=== PATIENT | male | born 1965 | race Caucasian/White ===

== ENCOUNTER → 2016-06-06 | Outpatient (CLI) | payer OTHER | LOC: KOH-I 06-05 15:00 | DX: N50.89 Other specified disorders of the male genital organs (principal) | CPT/HCPCS: 76870 ==

== ENCOUNTER → 2016-08-07 | Outpatient (CLI) | payer OTHER | LOC: KOH-I 08-04 08:30 | DX: M84.375A Stress fracture, left foot, initial encounter for fracture (principal) | CPT/HCPCS: 73720; A9577 ==

== ENCOUNTER → 2020-04-30 | Outpatient (CLI) | payer OTHER | LOC: RAD 15:45 | DX: M25.551 Pain in right hip (principal); M25.552 Pain in left hip; M25.572 Pain in left ankle and joints of left foot; M79.672 Pain in left foot | CPT/HCPCS: 73522; 73610; 73630 ==

== ENCOUNTER → 2020-06-15 | Outpatient (CLI) | payer OTHER ==
[2020-06-15 13:28] LABS: HEMOGLOBIN 15.1 gm/dl (14.0-17.5); WHITE BLOOD COUNT 5.5 K/UL (4.5-11.0)
[2020-06-15 13:54] LABS: BUN/CREATININE RATIO 16 (0-10)
[2020-06-16 08:14] LABS: VITAMIN D, 25-HYDROXY 19.1 ng/mL (30.0-100.0)
[2020-06-16 11:14] LABS: RHEUMATOID ARTHRITIS FACTOR <10.0 IU/mL (0.0-13.9)
[2020-06-17 01:07] LABS: CCP ANTIBODIES IGG/IGA 4 units (0-19)
== END ==
LOC: LAB 11:42
PROVIDERS: Nurse Practitioner Family
DX: Z87.898 Personal history of other specified conditions (principal); D89.9 Disorder involving the immune mechanism, unspecified; M25.50 Pain in unspecified joint; R76.8 Other specified abnormal immunological findings in serum
CPT/HCPCS: 36415; 80053; 82550; 83520; 84439; 84443; 84550; 85025; 85652; 86140; 86200; 86431

== ENCOUNTER → 2020-12-03 | Outpatient (CLI) | payer OTHER | LOC: KOH-I 11-30 14:30 | DX: M54.18 Radiculopathy, sacral and sacrococcygeal region (principal); M47.816 Spondylosis without myelopathy or radiculopathy, lumbar region; M47.817 Spondylosis without myelopathy or radiculopathy, lumbosacral region; M51.26 Other intervertebral disc displacement, lumbar region; M48.061 Spinal stenosis, lumbar region without neurogenic claudication; M51.86 Other intervertebral disc disorders, lumbar region | CPT/HCPCS: 72148 ==

== ENCOUNTER → 2021-06-22 | Outpatient (CLI) | payer OTHER | LOC: HEART 5 06-13 14:30 | DX: M79.606 Pain in leg, unspecified (principal) ==

== ENCOUNTER → 2021-09-28 | Outpatient (CLI) | payer OTHER ==
[2021-09-28 11:42] LABS: BUN/CREATININE RATIO 14 (0-10)
== END ==
LOC: LAB 10:36
PROVIDERS: Physician Assistant Surgical
DX: I10 Essential (primary) hypertension (principal)
CPT/HCPCS: 36415; 80048

== ENCOUNTER → 2021-11-04 | Outpatient (CLI) | payer OTHER | LOC: RAD 08:53 | DX: I10 Essential (primary) hypertension (principal); G47.30 Sleep apnea, unspecified; N52.1 Erectile dysfunction due to diseases classified elsewhere; M50.322 Other cervical disc degeneration at C5-C6 level | CPT/HCPCS: 71046; 72040; 93005 ==